=== PATIENT | female | born 1960 ===

== ENCOUNTER 2025-06-28 15:45 | Outpatient (RCR) | payer OTHER, SELFPAY ==
--- NOTE | 2025-06-21 14:34 | OPREHPOC ---
Outpatient Therapy Plan of Care This is a Multidisciplinary Plan of Care that may contain components documented by all disciplines (PT, OT, and ST.) PT Problem 1 PT Problem #1 Knowledge Deficit PT Goal 1 Goal / Goal Update *independent with HEP Target Visit 10 PT Problem 2 PT Problem #2 Pain PT Goal 1 Goal / Goal Update 1* pt report pain rating at worst of 4/10 in L shoulder 2* pt report with sleeping, awaken 2x/night due to pain Target Visit 10 PT Problem 3 PT Problem #3 Impaired Flexibility PT Goal 1 Goal / Goal Update increase L shoulder ROM to improve reaching up and use of arm: active in standin* flexion to 120' 2* abduction to 100' 3 * IR- reach behind back, palm to waist 4* ER- reaching to back of head, palm to back of head Target Visit 10 PT Problem 4 PT Problem #4 Impaired Strength PT Goal 1 Goal / Goal Update increase strength of L shoulder to gross 4-/5, to improve functional use of arm Target Visit 10
--- NOTE | 2025-06-21 14:34 | PTOPEVAL1 ---
Assessment and note entered by Martina Kendrick, PT Evaluation Information Assessment Status Evaluation ICD-10 Condition Codes (PT) Pain in left shoulder M25.512 Onset Sep 2024 Subjective Information had L rotator cuff repair surgery in [place]; afterwards, moved back to [place] to November and did not have any therapy until November for her shoulder; have not been doing any exercises for shoulder- hurts too much; only doing the pendulum L shoulder is weak, problems with mopping, cleaning home, lifting and carrying laundry basket can do things at home, hurts shoulder and L arm does not do as much; problems with sleeping R hand dominant; activity: work at hospital, at [employer]; computer work; --------- goal: better ROM and less pain of shoulder Reported Pain Level Pain Score Self Report Additional Pain Score Comments pain range in the past week: 4-8/10; ache, sometimes sharp; top of GH joint and lateral, posterior aspect, radicular to below elbow; increase pain: lie on L side, cold weather/air, decrease pain: rest, hot shower, with lying down, put small pillow behind shoulder; pendulum exercise; tramadol PRN, rarely use oxycodone with sleeping, awaken due to pain 3-4x/night reports chronic pain into L arm due to DVTs, DVT removal in upper arm and neuropathy from chemo; also lymphedema over L arm and trunk. Assessment PT Clinical Summary Fabiola has the diagnosis of L shoulder pain. [place] . She has had PT on her shoulder since surgery. Recent injection into shoulder eased the pain slightly. Self assessment with Quick DASH rating of 61% limitation in activity level. Pain limits her activity level-- dressing, bathing and doing home tasks; and sleeping is disrupted due to pain. She is R hand dominant. Currently working at [employer], doing computer work. Medical history: breast cancer with radiation and chemotherapy- with neuropathy in arms; lymphedema over L trunk and arm; DVT's into L arm with surgical removal of DVT mid humerus. With the evaluation: decreased strength and ROM of L shoulder with all motions; tenderness and pain over scar area of DVT surgical removal and deltoid; Skilled PT services are indicated for modalities to decrease pain & edema, therapeutic exercises to increase shoulder ROM and strength, with education for HEP, body mechanics, posture and self management of pain. Plan of Care Interventions Hot Pack/Cold Pack,Intermittent Compression Pump, Manual Therapy,Patient/Caregiver Education, Therapeutic Activities,Therapeutic Exercise,Other Other Interventions taping PT Services Indicated Yes Treatment Frequency and 1-2x/wk for 10 visits Duration These treatments will address the objective and functional deficits as defined above. The patient will be advanced safely and appropriately in order for the patient to progress towards his/her prior level of function. Additional exercises will be introduced and as well as a comprehensive home exercise program upon discharge, if needed, ?to ensure carryover of functional gains achieved in the clinic. This treatment plan has been reviewed and agreement upon by the patient.
--- NOTE | 2025-07-12 08:00 | PCPTNOTE ---
No call no show,reason unknown. AKNusrat
--- NOTE | 2025-07-15 12:44 | PCPTNOTE ---
pt did not show for today's appt. called and left voice message re: next appt.
--- NOTE | 2025-07-19 10:46 | OPREHPOC ---
Outpatient Therapy Plan of Care This is a Multidisciplinary Plan of Care that may contain components documented by all disciplines (PT, OT, and ST.) PT Problem 1 PT Problem #1 Knowledge Deficit PT Goal 1 Goal / Goal Update *independent with HEP 07-19-25 d/c goals not addressed pt stopped attending PT Target Visit 10 PT Problem 2 PT Problem #2 Pain PT Goal 1 Goal / Goal Update 1* pt report pain rating at worst of 4/10 in L shoulder 2* pt report with sleeping, awaken 2x/night due to pain 07-19-25 d/c goals not addressed pt stopped attending PT Target Visit 10 PT Problem 3 PT Problem #3 Impaired Flexibility PT Goal 1 Goal / Goal Update increase L shoulder ROM to improve reaching up and use of arm: active in standin* flexion to 120' 2* abduction to 100' 3 * IR- reach behind back, palm to waist 4* ER- reaching to back of head, palm to back of head 07-19-25 d/c goals not addressed pt stopped attending PT Target Visit 10 PT Problem 4 PT Problem #4 Impaired Strength PT Goal 1 Goal / Goal Update increase strength of L shoulder to gross 4-/5, to improve functional use of arm 07-19-25 d/c goals not addressed pt stopped attending PT Target Visit 10
--- NOTE | 2025-07-19 10:46 | PTOPDC ---
Assessment and note entered by Martina Kendrick, PT Assessment Status Discharge - Pt Not Present ICD-10 Condition Codes (PT) Pain in left shoulder M25.512 Onset Sep 2024 Subjective Information pt was not seen this date. Assessment PT Clinical Summary Fabiola has received 2 PT sessions, then did not show for 3 scheduled appointments. Discharge PT due to not attending. The goals were not addressed. Plan of Care PT Services Indicated No
--- NOTE | 2025-07-22 10:02 | PCPTNOTE ---
No call no show 11-26-25. FAUZIA
== END 2025-07-19 11:44 | disposition home or self-care (01) ==
LOC: ANHPT 15:45
PROVIDERS: PCP Family Medicine Sports Medicine; Visit Provider Family Medicine Sports Medicine
DX: M75.82 Other shoulder lesions, left shoulder (principal); M25.512 Pain in left shoulder
CPT/HCPCS: 97110; 97140; 97161; 97530